=== PATIENT | male | born 1950 | race Hispanic/Latino ===

== ENCOUNTER 2017-05-02 08:42 | Day surgery (SDC) | payer MEDICARE ==
[2017-05-02 09:00] VITALS: BMI 27.7
[2017-05-02 09:19] VITALS: RESP 18; O2SAT 97
[2017-05-02] MEDS ORDERED: Lactated Ringer's 1,000 ML IV ONE (09:30)
[2017-05-02] MEDS ORDERED: Midazolam 2 MG/2 ML VIAL ONE ×2 (10:25→10:49)
[2017-05-02] MEDS ORDERED: Bupivacaine HCl 0.5% PF (10 ml) Inj ONE (10:29)
[2017-05-02] MEDS ORDERED: Lidocaine 1% Inj (20ml) ONE (10:32)
[2017-05-02] MEDS ORDERED: Iohexol 300 10 ML ONE (10:39)
[2017-05-02] MEDS ORDERED: Dexamethasone 4 mg/1 ml ONE (10:40)
[2017-05-02] MEDS ORDERED: Bupivacaine HCl 0.25% PF (10 ml) Inj ONE (10:40)
[2017-05-02] MEDS ORDERED: HYDROmorphone 0.5 mg/0.5 ml ISec IVP PRN (11:05)
[2017-05-02] MEDS ORDERED: Lactated Ringer's 1,000 ML IV SCH (11:05)
[2017-05-02 12:39] VITALS: BP 138/75; PULSE 72; TEMP 97.8
--- NOTE | 2017-05-04 18:33 | RAD ---
PROCEDURE: Lumbar epidural injection HISTORY: PAIN MANAGEMENT COMPARISON: None TECHNIQUE: Standard protocol for this study/examination. FINDINGS: Total fluoroscopic time (continuous mode) utilized during the procedure: 22.6 seconds. IMPRESSION: Submitted images from the current procedure: 2.0
--- NOTE | 2017-05-14 16:13 | OP ---
DATE: 05/02/2017 PROCEDURE: Lumbar epidural steroid injection. SURGEON: Abad Sheehan MD PREOPERATIVE DIAGNOSES: 1. Lumbar disc herniation. 2. Lumbar radiculitis. POSTOPERATIVE DIAGNOSES: 1. Lumbar disc herniation. 2. Lumbar radiculitis. ANESTHESIA: Conscious sedation was provided by the anesthesiologist. ESTIMATED BLOOD LOSS: 0 mL SPECIMEN: None. COMPLICATIONS: None. DESCRIPTION OF PROCEDURE: After fully informed written consent was obtained, the patient was brought to the operating room. The patient was placed in a prone position on the operating table. The patient's low back was prepped and draped in the usual sterile fashion. A 1% lidocaine was administered for local anesthesia. Using strict sterile technique and intermittent fluoroscopic guidance, a 20_gauge Tuohy needle was advanced into the posterior epidural space at the level of L4_L5. Loss_of_resistance technique was utilized to access the epidural space. Needle position was confirmed in the AP and lateral projections. Under direct fluoroscopic imaging, contrast material was injected , opacifying the epidural space. Next, 8 mg of dexamethasone and 1 mL of bupivacaine 0.25% were injected into the epidural space. The needle was re_ styletted and then removed. The patient tolerated the procedure without apparent complication. The patient was observed in the recovery room. Physical examination revealed no motor weakness. The patient was discharged in stable condition. IMPRESSION: Lumbar interlaminar epidural anesthetic/steroid injection at the level of L4_L5. Abad Sheehan MD [facility]
== END 2017-05-02 12:43 | disposition home or self-care (01) ==
LOC: H.OPSURG 08:42
PROVIDERS: ATTEND Radiology Diagnostic Radiology
DX: M51.26 Other intervertebral disc displacement, lumbar region (principal); M54.16 Radiculopathy, lumbar region; M53.1 Cervicobrachial syndrome; I25.10 Atherosclerotic heart disease of native coronary artery without angina pectoris; I10 Essential (primary) hypertension; E78.00 Pure hypercholesterolemia, unspecified; Z95.1 Presence of aortocoronary bypass graft; Z95.0 Presence of cardiac pacemaker; Z95.810 Presence of automatic (implantable) cardiac defibrillator; Z79.82 Long term (current) use of aspirin
CPT/HCPCS: 62323; J1100; J1170; J2250; J3010; J7120; Q9967